=== PATIENT | male | born 2005 | race Caucasian/White ===

== ENCOUNTER 2023-11-26 08:54 | Emergency (ER) | payer OTHER, BC, SELFPAY ==
[2023-11-26 09:00] VITALS: BP 130/65
--- NOTE | 2023-11-26 09:24 | ED.GENMED ---
Addendum entered and electronically signed by Brijesh Segovia PA-C 11/27/23 19:29:
Pt notified regarding the minor avulsion fx. His pain has improved today. Recommend Ortho f/u in 2-3 weeks for re-evaluation, no need for formal immobilization
Original Note:
History of Present Illness
General
Chief Complaint: Musculo-Skeletal Complaint
Time Seen by Provider: 11/26/23 09:05
History of Present Illness
History of Present Illness:
18-year-old male presents to the emergency department for evaluation of a left foot injury sustained yesterday when he slipped getting off a tractor and twisted the left foot. He is able to bear weight with pain. Primary location of pain is the
dorsal lateral midfoot.
Review of Systems
Review of Systems
Allergies reviewed?: Yes
All Other Systems: ROS reviewed and negative except as documented in HPI and ROS
Phy Exam
Physical Exam
Physical Exam:
GEN: Well appearing, NAD, WDWN
HEENT: Oral mucosa moist, no scleral icterus
Cardiac: Regular rate
Lung: No respiratory distress, no tachypnea
MSK: Mild swelling to the dorsal lateral midfoot with focal tenderness. No gross bony deformities. No bony tenderness to the medial or lateral malleolus, no tenderness to the base of the fifth metatarsal, normal left ankle range of motion
Skin: Good color, no pallor or jaundice, no rashes
Neuro: AO x3, moves all extremities freely
Psych: Calm, cooperative
Course
Orders/Labs/Results
Orders:
Orders
11/26/23 09:03
Foot, Left 3 View [CR Foot - Left Min 3 Views] Urgent
Comment:
Reason For Exam: left foot pain twisted getting off tractor
Vital Signs
Initial and Last Documented VS:
Initial Vital Signs
Temp Pulse Resp BP Pulse Ox
99.0 F 63 16 130/65 98
11/26/23 09:00 11/26/23 09:00 11/26/23 09:00 11/26/23 09:00 11/26/23 09:00
Last Documented Vital Signs
Temp Pulse Resp BP Pulse Ox
99.0 F 63 16 130/65 98
11/26/23 09:00 11/26/23 09:00 11/26/23 09:00 11/26/23 09:00 11/26/23 09:00
MDM/Problems Addressed
MDM/Problems Addressed:
X-rays of the left foot independently interpreted by me are negative for acute osseous abnormality. Discussed supportive care
*Critical Care Note
Total Time (30-74mins, 75-104mins- exclusive of procedures): Not Applicable
ED Attending Note
-
Portions of this chart may have been created with voice recognition software.� Occasional wrong word or��sound alike� substitutions may have occurred due to the inherent limitations of voice recognition software.
Discharge Plan
Departure
Patient Disposition: Home (Routine Discharge)
Date of Disposition: 11/26/23
Time of Disposition: 09:26
Patient with high blood pressure during this ER visit?: No
Discharge Problem:
Sprain of foot, left
Instructions: Foot Sprain ED
Interventions
Interventions:
*Risk Screen - Suicide Last Done: 11/26/23 09:30
*General Assessment Last Done: 11/26/23 09:30
*Neglect/Abuse Screening Last Done: 11/26/23 09:30
ED- Fall Risk Assessment Last Done: 11/26/23 09:30
*ED COVID-19 Vaccine History Last Done: 11/26/23 09:30
ED-Musculoskeletal Assessment Last Done: 11/26/23 09:30
Discharge Date and Time
Print Language: SPANISH
[2023-11-26 09:30] VITALS: BMI 40.6
[2023-11-26 09:35] VITALS: BP 126/70
--- NOTE | 2023-11-26 09:35 | EDRN ---
Reviewed discharge instructions with patient. Verbalized understanding. Ambulated with steady gait to the lobby.
== END 2023-11-26 09:35 | disposition home or self-care (01) ==
LOC: EMR 08:54
PROVIDERS: EMERGENCY PHYSICIAN Emergency Medicine; FAMILY PHYSICIAN Family Medicine
DX: S93.602A Unspecified sprain of left foot, initial encounter (principal); X50.1XXA Overexertion from prolonged static or awkward postures, initial encounter
CPT/HCPCS: 99283; 73630